=== PATIENT | male | born 1985 | race African-American/Black ===

== ENCOUNTER 2018-08-09 12:43 | Emergency (ER) | payer BC ==
[~2018-08-09] VITALS: Ht 177.8 cm; Wt 88.5 kg
[2018-08-09 12:53] VITALS: Ht 177.8 cm; Wt 88.5 kg
[2018-08-09 13:37] VITALS: BP 162/96
== END 2018-08-09 13:37 | disposition home or self-care (01) ==
LOC: ED 12:43
DX: R00.2 Palpitations (principal); B34.9 Viral infection, unspecified

== ENCOUNTER 2019-10-24 04:03 | Emergency (ER) | payer OTHER ==
[~2019-10-24] VITALS: Ht 177.8 cm; Wt 96.6 kg
[2019-10-24 04:06] VITALS: Ht 177.8 cm; Wt 96.6 kg
[2019-10-24 06:02] VITALS: BP 162/88
== END 2019-10-24 06:02 | disposition home or self-care (01) ==
LOC: ED 04:03
DX: J20.9 Acute bronchitis, unspecified (principal); R06.2 Wheezing; F17.200 Nicotine dependence, unspecified, uncomplicated
CPT/HCPCS: 99406; J7613; J7620; Q0092